=== PATIENT | male | born 1950 | race Caucasian/White ===

== ENCOUNTER 2024-11-27 01:24 | Emergency (ER) | payer MEDICARE, OTHER ==
[~2024-11-27] VITALS: Ht 177.8 cm; Wt 89.6 kg
[2024-11-27] MEDS ORDERED: TIMOLOL MALEATE5 MG (01:43)
[2024-11-27] MEDS ORDERED: BETIMOL5 M2 (01:44)
[2024-11-27] MEDS ORDERED: IBLOOD GLUCOSE TEST STRIP 1 EA TEST XX ONE (01:45)
[2024-11-27 01:54] LABS: BASOPHILS 0.6 % (0-2); HEMATOCRIT 40.2 % (35.0-50.0); HEMOGLOBIN 14.5 g/dL (12.0-18.0); MCH 33.1 (27-36); MCHC 36.2 g/dl (30-36); MCV 91.4 fl (81-99); MONOCYTES 8.8 % (0-12); NEUTROPHILS 64.6 % (39-80); PLATELET COUNT 207 K/uL (140-440); RBC 4.39 M/ul (4.3-5.7); RDW 13.1 (10.5-15.0)
[2024-11-27 02:08] LABS: PARTIAL THROMBOPLASTIN TIME 29.2 Sec (22.9-41.3)
[2024-11-27 02:09] LABS: INR 1.01 (0.80-1.30); PROTIME 12.7 Sec (11.2-14.2)
[2024-11-27 02:15] LABS: ALBUMIN/GLOBULIN RATIO 1.05 (1.1-2.4); ANION GAP 16.5 (7-21); BILIRUBIN, TOTAL 0.6 mg/dL (0.2-1.0); BUN/CREATININE RATIO 21.59 (6.0-28.6); CALCIUM 9.3 mg/dL (8.5-10.1); CREATININE, SERUM 0.88 mg/dL (0.70-1.30); POTASSIUM 3.5 mmol/L (3.5-5.1); PROTEIN, TOTAL 7.8 g/dL (6.4-8.2)
[2024-11-27] MEDS ORDERED: MECLIZINE HCL25 MG PO ×2 (04:34→04:51)
[2024-11-27 04:48] VITALS: BP 127/78
--- NOTE | 2024-11-27 12:30 | EKG ---
[facility] [address] [place] [address] Signed Normal sinus rhythm Possible Anterior infarct , age undetermined Abnormal ECG No previous ECGs available Confirmed by Jann Murillo MD () on 11/27/2024 12:30:05 PM Electronically Signed By: JANN MURILLO MD 11/27/24 1230 PATIENT NAME: BRANDAN PARSONS Electrocardiogram DATE OF : 54 PHYSICIAN: JANN MURILLO MD REPORT #: [id number] REPORT IS CONFIDENTIAL AND NOT TO BE RELEASED WITHOUT AUTHORIZATION
== END 2024-11-27 04:50 | disposition home or self-care (01) ==
LOC: ED 01:24
PROVIDERS: Internal Medicine
DX: H81.10 Benign paroxysmal vertigo, unspecified ear (principal); I10 Essential (primary) hypertension; Z79.899 Other long term (current) drug therapy
CPT/HCPCS: 36415; 70450; 70496; 70498; 71045; 80053; 80307; 84484; 85025; 85610; 85730; 93005; 93010; 99284-25; Q9967